=== PATIENT | male | born 1955 | race Caucasian/White ===

== ENCOUNTER 2018-12-02 13:07 | Emergency (ER) | payer BC ==
[~2018-12-02] VITALS: Ht 167.6 cm; Wt 95.3 kg
--- NOTE | 2018-12-02 13:21 | NUR ---
Patient to ER bed 02 to gown for evaluation. Side rails up.
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
[2018-12-02 13:45] VITALS: BP_SYST 147
--- NOTE | 2018-12-02 14:00 | NUR ---
ER at bedside examining patient.
--- NOTE | 2018-12-02 15:10 | NUR ---
Pt tolerated medication well.
[2018-12-02] MEDS ORDERED: MORPHINE 4 MG/ML INJ. SYRINGE IVP ONE (15:15)
[2018-12-02] MEDS ORDERED: KETOROLAC TROMETHAMINE 60 MG/2 ML VIAL IM ONE ×2 (16:00→16:11)
--- NOTE | 2018-12-02 16:00 | NUR ---
west wrap applied
[2018-12-02 16:52] VITALS: BP_SYST 140
--- NOTE | 2018-12-02 16:52 | NUR ---
Patient given written and verbal discharge instructions and verbalizes understanding. ER MD discussed with patient the results and treatment provided. Patient in stable condition. ID arm band removed. Rx of motrin given. Patient educated on pain management and to follow up with PMD. Pain Scale 2. Opportunity for questions provided and answered. Medication side effect fact sheet provided.
== END 2018-12-02 16:52 | disposition home or self-care (01) ==
LOC: SED 13:07
DX: S83.92XA Sprain of unspecified site of left knee, initial encounter (principal); Z88.0 Allergy status to penicillin; V02.99XA Pedestrian with other conveyance injured in collision with two- or three-wheeled motor vehicle, unspecified whether traffic or nontraffic accident, initial encounter; Y93.89 Activity, other specified; Y92.410 Unspecified street and highway as the place of occurrence of the external cause; Y99.8 Other external cause status
CPT/HCPCS: 72100; 73564; 96372; 99283; J1885; J2270